=== PATIENT | female | born 1950 | race Caucasian/White ===

== ENCOUNTER 2022-03-21 19:46 | Emergency (ER) | payer MEDICARE, SELFPAY ==
[2022-03-21 20:03] LABS: Adenovirus,PCR Not Detected (NotDetected); Bordetella Pertussis Not Detected (NotDetected); Chlamydophila Pneumoniae, PCR Not Detected (NotDetected); Coronavirus 229E Not Detected (NotDetected); Coronavirus NL63 Not Detected (NotDetected); Coronavirus OC43 Not Detected (NotDetected); Coronovirus HKU1,PCR Not Detected (NotDetected); Human Metapneumovirus Not Detected (NotDetected); Influenza A, PCR Not Detected (NotDetected); Influenza AH1, 2009 Not Detected (NotDetected); Influenza AH1, PCR Not Detected (NotDetected); Influenza AH3,PCR Not Detected (NotDetected); Influenza B, PCR Not Detected (NotDetected); Microscopic, Urine URINE MICROSCOPIC (MICROSCOPIC); Mycoplasma Pneumoniae, PCR Not Detected (NotDetected); Parainfluenza 1, PCR Not Detected (NotDetected); Parainfluenza 2, PCR Not Detected (NotDetected); Parainfluenza 3, PCR Not Detected (NotDetected); Parainfluenza 4, PCR Not Detected (NotDetected); Respiratory Syncytial Virus Not Detected (NotDetected); Rhinovirus/Enterovirus Not Detected (NotDetected)
[2022-03-21 20:04] VITALS: BP 140/44; PULSE 76; RESP 18; TEMP 36.5; O2SAT 96; BMI 32.5
[2022-03-21 20:20] LABS: Appearance,Urine CLEAR (Clear); Bilirubin,Urine Negative (Negative); Blood, Urine Negative (Negative); Color,Urine YELLOW (Yellow); Glucose,Urine (UA) Negative (Negative); Ketones,Urine Negative (Negative); Leukocyte Esterase,Urine Negative (Negative); Nitrate,Urine Negative (Negative); PH,Urine 5.5 (5.0-8.5); Protein,Urine Negative (Negative); Specific Gravity, Urine >= 1.030 (1.005-1.030)
--- NOTE | 2022-03-21 20:21 | XR_ITS ---
PROCEDURE INFORMATION: Exam: XR Chest Exam date and time: 03/21/2022 8:26 PM Age: 71 years old Clinical indication: Condition or disease; Patient HX: Third time having covid. Patient has been vaccinated she states. SOB. ; Additional info: SOA TECHNIQUE: Imaging protocol: Radiologic exam of the chest. Views: 2 views. COMPARISON: No relevant prior studies available. FINDINGS: Lungs: No consolidation. Pleural spaces: No pneumothorax. Heart/Mediastinum: No cardiomegaly. Bones/joints: No acute fracture. IMPRESSION: No acute findings.
--- NOTE | 2022-03-21 20:31 | HMH.EDURI ---
ED Disposition Clinical Impression: COVID-19 Disposition: Home, Self-Care Condition on Discharge: Good Instructions: DI for COVID-19 (Suspected or Confirmed ) Additional Instructions: see pcp for follow up Referrals: Deidre Davenport [Primary Care Provider] - - Critical Care Critical Care Time: No Attestation: On 03/21/22, the high probability of a clinically significant, sudden or life threatening deterioration of the following system(s) required my full and direct attention, intervention and personal management. The time I documented below is in addition to time spent performing reported procedures but includes the following listed in this critical care notation. Medical Decision Making - Medical Records Medical records reviewed: Yes: I reviewed the patient's medical records. - [place] Inquiry Pt receiving controlled substance: No Vital Signs: 03/21/22 20:04 Temperature 97.7 F Temperature Source Oral Pulse Rate [Apical] 76 Respiratory Rate 18 Blood Pressure [Right Arm] 140/44 L Blood Pressure Mean [Right Arm] 76 Blood Pressure Source [Right Arm] Automatic Cuff Blood Pressure Position [Right Arm] Sitting 02 Sat by Pulse Oximetry 96 Oxygen Delivery Method Room Air - Lab Data Lab results reviewed: Yes: I reviewed the patient's lab results. Lab Results 03/21/22 19:53: Urine Color Yellow, Urine Appearance Clear, Urine pH 5.5, Ur Specific [place] >= 1.030, Urine Protein Negative, Urine Glucose (UA) Negative, Urine Ketones Negative, Urine Blood Negative, Urine Nitrate Negative, Urine Bilirubin Negative, Urine Urobilinogen 1.0, Ur Leukocyte Esterase Negative, Urine RBC None, Urine WBC Occasional, Ur Squamous Epith Cells 5-10, Urine Bacteria Trace 03/21/22 19:55: WBC 5.7, RBC 3.68 L, Hgb 10.3 L, Hct 35.3 L, MCV 96.0, MCH 28.0, MCHC 29.2 L, RDW 14.6, Plt Count 416, MPV 8.2, Neut % (Auto) 50.3, Lymph % (Auto) 39.6, [place] % (Auto) 6.0, Eos % (Auto) 3.1, Baso % (Auto) 1.0, Neut # (Auto) 2.9, Lymph # (Auto) 2.3, [place] # (Auto) 0.3, Eos # (Auto) 0.2, Baso # (Auto) 0.1 03/21/22 20:30: ESR 139 H 03/21/22 20:30: Sodium 140, Potassium 4.9, Chloride 105, Carbon Dioxide 29, Anion Gap 10.9, BUN 21 H, Creatinine 0.80, Estimated Creat Clear 70, Estimated GFR 71, Est GFR ( Amer) 86, Glucose 128 H, Calcium 8.9, Magnesium 1.8, Total Bilirubin < 0.1 L, AST 21, ALT 19, Alkaline Phosphatase 70, C-Reactive Protein 8.6 H, Total Protein 7.1, Albumin 3.8, Globulin 3.3 H, Albumin/Globulin Ratio 1.2, Procalcitonin 0.050, TSH 2.47, Thyroxine (T4) 8.1 03/21/22 20:30: NT-Pro-B Natriuret Pep 122 Result diagrams: 03/21/22 19:55 03/21/22 20:30 Orders (Tests/Meds): ED MEDICATIONS Generic Name Dose Route Start Last Admin Trade Name Freq PRN Reason Stop Dose Admin Albuterol Sulfate 2 puff 03/21/22 21:06 03/21/22 21:19 Albuterol-Hfa 90mcg/Puff Inhaler 8gm IH 04/20/22 21:05 2 puff Q6HP PRN Administration Shortness Of Breath Sodium Chloride 1,000 mls @ 999 mls/hr 03/21/22 20:30 03/21/22 20:23 Sod Chlor 0.9% 1000ml Bag IV 03/21/22 21:30 999 mls/hr .Q1H1M JOAO Administration Discontinued Medications Generic Name Dose Route Start Last Admin Trade Name Freq PRN Reason Stop Dose Admin Acetaminophen 650 mg 03/21/22 20:19 03/21/22 20:24 Acetaminophen 325mg Tab PO 03/21/22 20:20 650 mg ONCE ONE Administration Miscellaneous 1 unit 03/21/22 21:06 03/21/22 21:19 Aerochamber/Optihaler MC 03/21/22 21:07 1 unit ONCE ONE Administration ORDERS Category Date Time Status Full Resp Panel w/COVID ([facility]) Routine Lab 03/21/22 19:53 Received - Radiology Data #1 Image(s): Chest Image Reviewed: Yes I have reviewed radiologist's interpretation Preliminary Findings: Normal/NAD Medical Decision Narrative: pt has covid-19 by hx and has stable exam and xray - will continue treatment at this time URI/Sore Throat HPI - General Chief Complaint: Upper Respiratory Infection Stated Com
[2022-03-21 20:35] LABS: Bacteria,Urine Trace /lpf; WBC,Urine Occasional #/hpf (0-3)
[2022-03-21 20:48] LABS: Anion Gap 10.9 mEq/L (5-15); Blood Urea Nitrogen 21 mg/dl (7-17); Carbon Dioxide 29 mmol/L (22.0-30.0); Chloride 105 mmol/L (98-107); Creatinine Clearance Estimated 70 mL/min (50-200); Estimated Glomerular Filt Rate 71 ml/min (>60); Potassium 4.9 mmoL/L (3.5-5.1); Sodium 140 mmol/L (136-145)
[2022-03-21 20:49] LABS: Alanine Aminotransferase 19 U/L (12-78); Albumin Level 3.8 g/dl (3.5-5.0); Albumin/Globulin Ratio 1.2 (1.1-1.8); Alkaline Phosphatase 70 U/L (38-126); Aspartate Amino Transferase 21 U/L (14-36); Bilirubin,Total < 0.1 mg/dl (0.2-1.3); Calcium 8.9 mg/dl (8.4-10.2); GFR (African American) 86 ML/MIN (>60); Globulin 3.3 g/dL (1.3-3.2); Glucose 128 mg/dl (74-100); Magnesium 1.8 mg/dl (1.6-2.3); Total Protein,Serum 7.1 g/dl (6.3-8.2)
[2022-03-21 20:54] LABS: C-Reactive Protein 8.6 mg/L (0-4)
[2022-03-21 21:00] LABS: NT Pro Brain Natriuretic Pep. 122 pg/mL (0-125)
[2022-03-21 21:08] LABS: T4 (Thyroxine) 8.1 ug/dl (5.53-11.0)
[2022-03-21 21:13] LABS: Erythrocyte Sedimentation Rate 139 mm/hr (0-30)
[2022-03-21 21:16] LABS: Basophils # 0.1 K/mm3 (0-0.2); Eosinophils # 0.2 K/mm3 (0.0-0.4); Eosinophils % 3.1 % (0.1-12.0); Hematocrit 35.3 % (37.0-47.0); Hemoglobin 10.3 g/dL (12.2-16.2); Lymphocytes # 2.3 K/mm3 (0.7-4.5); Lymphocytes % 39.6 % (10-50); Mean Corpuscular HGB Conc 29.2 g/dL (31.8-35.4); Mean Platelet Volume 8.2 fl (7.4-10.4); Monocytes # 0.3 K/mm3 (0.1-1.0); Neutrophils # 2.9 K/mm3 (1.8-7.8); Neutrophils % 50.3 % (37.0-80.0); Platelet Count 416 K/mm3 (142-424); Red Blood Count 3.68 M/mm3 (4.20-5.40); Red Cell Distribution Width 14.6 % (11.5-17.5); White Blood Count 5.7 K/mm3 (4.8-10.8)
[2022-03-21 21:22] LABS: Thyroid Stimulating Hormone 2.47 uIU/mL (0.465-4.68)
[2022-03-21 21:54] VITALS: BP 136/85; PULSE 84; RESP 16; TEMP 37.2; O2SAT 96
[2022-03-21 22:39] LABS: Coronavirus 19, PCR Detected (NotDetected)
== END 2022-03-21 22:02 | disposition home or self-care (01) ==
PROVIDERS: Emergency Provider Emergency Medicine; PCP Family Medicine
DX: U07.1 COVID-19 (principal); Z79.82 Long term (current) use of aspirin; Z79.899 Other long term (current) drug therapy; Z79.84 Long term (current) use of oral hypoglycemic drugs; Z88.1 Allergy status to other antibiotic agents; Z88.6 Allergy status to analgesic agent; Z88.8 Allergy status to other drugs, medicaments and biological substances
CPT/HCPCS: 71046; 80053; 81001; 83735; 83880; 84145; 84436; 84443; 85025; 85651; 86140; 87581; 87632; 87798; 94640; 96365; 96375; 99283; 99284; C9803; U0003; U0005

== ENCOUNTER 2022-06-24 01:41 | Emergency (ER) | payer MEDICARE, SELFPAY ==
[2022-06-24] VITALS (8 sets, daily range): BP systolic 133–180; BP diastolic 52–102; PULSE 71–82; RESP 14–18; TEMP 36.6; O2SAT 96–98; BMI 32.5
--- NOTE | 2022-06-24 01:41 | ECG_ITS ---
APPROVED REPORT Exam: Resting ECG HR:74 bpm ECG Measurements Heart Rate 74 AXES NM 172 P 62 QRSd 84 QRS 62 QT 368 T 73 QTc 395 Conclusion SINUS RHYTHM NONSPECIFIC ST & T-WAVE ABNORMALITY BORDERLINE ECG UNCONFIRMED REPORT Electronically signed by : Shawn Michelle MD 06/25/2022 17:41:24
--- NOTE | 2022-06-24 01:44 | XR_ITS ---
PROCEDURE INFORMATION: Exam: XR Chest Exam date and time: 06/24/2022 1:56 AM Age: 71 years old Clinical indication: Pain; Left-sided; Additional info: Chest pain TECHNIQUE: Imaging protocol: Radiologic exam of the chest. Views: 1 view. COMPARISON: CR XR CHEST 2V 03/21/2022 8:26 PM FINDINGS: Lungs: Normal. Pleural spaces: Unremarkable. No pleural effusion. No pneumothorax. Heart/Mediastinum: Normal. Vasculature: Atherosclerotic disease of the thoracic aorta. Bones/joints: Multilevel thoracic spine degenerative disc space narrowing and osteophyte formation. IMPRESSION: No acute cardiopulmonary abnormality.
--- NOTE | 2022-06-24 01:46 | PC.NURSE ---
RAD at for CXR
--- NOTE | 2022-06-24 01:52 | HMH.EDCP ---
Discharge Plan Disposition Patient Disposition: Home, Self-Care Condition: Good Prescriptions Prescriptions: No Action atorvastatin 80 MG tablet 80 mg PO HS diphenoxylate-atropine 2.5 MG tablet 2.5 mg PO DAILY clopidogrel 75 MG tablet 75 mg PO DAILY aspirin 81 MG tablet,delayed release (DR/EC) 81 mg PO DAILY levothyroxine 25 MCG tablet 25 mcg PO DAILY losartan 100 MG tablet 100 mg PO DAILY sertraline 50 MG tablet 75 mg PO DAILY cholecalciferol (vitamin D3) 1,000 UNIT capsule 1,000 unit PO DAILY metformin 500 MG tablet extended release 24hr 500 mg PO BID pregabalin 150 MG capsule 150 mg PO DAILY Referrals Follow up/Referrals: Provider,Referral, MD [Referring] - See instructions Clinical Impressions Clinical Impression: Chest pain Instructions Patient Instructions: DI for Chronic Pain -- Adult, DI for Chest Pain Discharge ED Provider: Ana M Stauffer Chest Pain HPI General Chief Complaint: Chest Pain Stated Complaint: Chest Pain Time Seen by Provider: 06/24/22 01:52 History of Present Illness HPI narrative: 71-year-old female with a past medical history significant for CAD s/p cardiac stents, prior CVA on aspirin and Plavix, hypertension and type 2 diabetes presenting for chief complaint of chest pain. Chest pain at home was 12/10 but has continuously improved to 4 out of 10 currently. At home, patient had associated nausea and states she thought it radiated to her left upper extremity. Pain is located under her left breast. Patient denies fever, diaphoresis, productive cough, hemoptysis, acute limb swelling, lower extremity edema, abdominal pain, vomiting, changes in GI/. Denies falls or traumatic injuries. complaint: chest pain Onset (ago): minute(s) Duration: other (Improved) Activity at onset: during rest Pain location: left chest Severity: moderate Pain radiation: LUE Relieving factors: other (Spontaneous) Exacerbating factors: palpation Associated symptoms: nausea Risk Factors for CAD: Hypertension, Hypercholesterolemia and Diabetes Treatments prior to or on arrival for Cardiac Chest Pain: none Related Data Home Medications Medication Instructions Recorded Confirmed aspirin 81 mg tablet,delayed 81 mg PO DAILY Heart disease 03/21/22 03/21/22 release atorvastatin 80 mg tablet 80 mg PO HS hyperlipidemia 03/21/22 03/21/22 cholecalciferol (vitamin D3) 25 1,000 unit PO DAILY Supplement 03/21/22 03/21/22 mcg (1,000 unit) capsule clopidogrel 75 mg tablet 75 mg PO DAILY Blood thinner 03/21/22 03/21/22 diphenoxylate-atropine 2.5 2.5 mg PO DAILY diarrhea 03/21/22 03/21/22 mg-0.025 mg tablet levothyroxine 25 mcg tablet 25 mcg PO DAILY hypothyroidism 03/21/22 03/21/22 losartan 100 mg tablet 100 mg PO DAILY htn 03/21/22 03/21/22 metformin 500 mg tablet,extended 500 mg PO BID dm 03/21/22 03/21/22 release 24hr pregabalin 150 mg capsule 150 mg PO DAILY nerve pain 03/21/22 03/21/22 sertraline 50 mg tablet 75 mg PO DAILY Depression 03/21/22 03/21/22 Allergies Allergy/AdvReac Type Severity Reaction Status Date / Time amoxicillin [From Augmentin] Allergy Verified 03/21/22 20:11 clavulanic acid Allergy Verified 03/21/22 20:11 [From Augmentin] codeine Allergy Verified 03/21/22 20:11 levofloxacin [From Levaquin] Allergy Verified 03/21/22 20:11 lisinopril Allergy Verified 03/21/22 20:11 [facility] Social History Smoking Status: Never smoker alcohol intake: never current occupational status: other Travel in the last 8 weeks: None ROS Obtained: Yes Systems reviewed as appropriate & no additional complaints except as documented Constitutional Constitutional: Denies fever(s) and Denies malaise Comments: Chronic headaches Eyes Eyes: Denies change in vision Cardiovascular Cardiovascular: Reports chest pain, Reports chest pain at rest, Denies linette
--- NOTE | 2022-06-24 02:01 | PC.NURSE ---
Dr. [place] at BS
[2022-06-24 02:05] LABS: Basophils # 0.2 K/mm3 (0-0.2); Basophils % 1.6 % (0.1-2.0); Eosinophils # 0.4 K/mm3 (0.0-0.4); Eosinophils % 4.3 % (0.1-12.0); Hematocrit 33.8 % (37.0-47.0); Hemoglobin 10.8 g/dL (12.2-16.2); Lymphocytes # 2.9 K/mm3 (0.7-4.5); Lymphocytes % 32.3 % (10-50); Mean Corpuscular HGB Conc 31.9 g/dL (31.8-35.4); Mean Corpuscular Hemoglobin 28.7 pg (27.0-31.2); Mean Platelet Volume 7.8 fl (7.4-10.4); Monocytes # 0.4 K/mm3 (0.1-1.0); Monocytes % 4.6 % (1.7-9.3); Neutrophils # 5.2 K/mm3 (1.8-7.8); Neutrophils % 57.3 % (37.0-80.0); Platelet Count 393 K/mm3 (142-424); Red Blood Count 3.75 M/mm3 (4.20-5.40); Red Cell Distribution Width 15.4 % (11.5-17.5)
[2022-06-24 02:17] LABS: Blood Urea Nitrogen 23 mg/dl (7-17); Calcium 8.8 mg/dl (8.4-10.2); Carbon Dioxide 30 mmol/L (22.0-30.0); Chloride 101 mmol/L (98-107); Creatinine Clearance Estimated 70 mL/min (50-200); Estimated Glomerular Filt Rate 71 ml/min (>60); GFR (African American) 86 ML/MIN (>60); Glucose 114 mg/dl (74-100); Sodium 139 mmol/L (136-145)
[2022-06-24 02:24] LABS: C-Reactive Protein 4.2 mg/L (0-4)
[2022-06-24 02:31] LABS: Troponin I < 0.01 ng/ml (0.00-0.034)
--- NOTE | 2022-06-24 04:17 | PC.NURSE ---
Pt updated on POC and expected wait times. No needs or complaints voiced at this time.
--- NOTE | 2022-06-24 04:23 | PC.NURSE ---
Second trop drawn and sent to lab
[2022-06-24 04:53] LABS: Troponin I < 0.01 ng/ml (0.00-0.034)
== END 2022-06-24 05:37 | disposition home or self-care (01) ==
PROVIDERS: Emergency Provider Emergency Medicine; PCP Family Medicine
DX: R07.9 Chest pain, unspecified (principal); R00.2 Palpitations; I25.10 Atherosclerotic heart disease of native coronary artery without angina pectoris; Z86.73 Personal history of transient ischemic attack (TIA), and cerebral infarction without residual deficits; Z79.01 Long term (current) use of anticoagulants; Z79.82 Long term (current) use of aspirin; Z79.84 Long term (current) use of oral hypoglycemic drugs; I10 Essential (primary) hypertension; E11.9 Type 2 diabetes mellitus without complications; E78.5 Hyperlipidemia, unspecified; Z88.1 Allergy status to other antibiotic agents; Z88.6 Allergy status to analgesic agent; Z88.8 Allergy status to other drugs, medicaments and biological substances
CPT/HCPCS: 71045; 80048; 84484; 85025; 86140; 93005; 99284

== ENCOUNTER → 2023-04-03 16:04 | Outpatient (CLI) | payer MEDICARE, SELFPAY | PROVIDERS: PCP Family Medicine; Visit Provider Specialist | DX: G47.33 Obstructive sleep apnea (adult) (pediatric) (principal); R06.83 Snoring | CPT/HCPCS: G0399 ==

== ENCOUNTER 2023-05-12 16:28 | Emergency (ER) | payer MEDICARE, SELFPAY ==
[2023-05-12 16:29] VITALS: BP 134/41; PULSE 70; RESP 18; TEMP 37; O2SAT 99; BMI 33.5
--- NOTE | 2023-05-12 17:17 | EXP.UTC ---
Discharge Plan Disposition Patient Disposition: Home, Self-Care Condition: Good Prescriptions Prescriptions: New methylprednisolone 4 mg Tablets,Dose Pack 4 mg PO DIRECTED Qty: 21 0RF cefdinir 300 mg capsule 300 mg PO BID Qty: 20 0RF No Action metoprolol succinate 25 mg tablet extended release 24 hr 25 mg PO DAILY All Day Allergy (cetirizine) 10 mg capsule 10 mg PO DAILY ferrous sulfate 324 mg (65 mg iron) tablet,delayed release (DR/EC) 324 mg PO Q OTHER DAY Rx Instructions: MWF ascorbate calcium (vitamin C) 500 mg tablet 500 mg PO .COMPLEX Rx Instructions: 500 mg orally MWF; levothyroxine 125 mcg capsule 125 mcg PO DAILY amlodipine 2.5 mg tablet 2.5 mg PO DAILY (DME) [facility] See Rx Instructions .Route Rx Instructions: As directed meclizine [Dramamine (meclizine)] 25 mg tablet 25 mg PO BID sertraline 100 mg tablet 100 mg PO DAILY atorvastatin 80 MG tablet 80 mg PO HS clopidogrel 75 MG tablet 75 mg PO DAILY aspirin 81 MG tablet,delayed release (DR/EC) 81 mg PO DAILY losartan 100 MG tablet 100 mg PO DAILY cholecalciferol (vitamin D3) 1,000 UNIT capsule 1,000 unit PO DAILY metformin 500 MG tablet extended release 24hr 500 mg PO BID Referrals Follow up/Referrals: Deidre Davenport [Primary Care Provider] - See instructions Activity Restrictions/Add. Instructions Additional Instructions/Restrictions: Drink plenty of fluids. Take tylenol or ibuprofen for pain or fever. Take the medications as directed. Follow up with your regular doctor. GO TO THE ER FOR ANY WORSENING SYMPTOMS Don't start the oral steroids until tomorrow, since you had the shot here today. Clinical Impressions Clinical Impression: Sinusitis, Bronchitis Instructions Patient Instructions: Sinusitis, DI for Sinusitis Discharge ED Provider: Aniceto Velazquez [facility] [place] General Stated complaint: congestion,cough Time Seen by Provider: 05/12/23 17:17 History of Present Illness Provider Complaint: She states that for the past 4 days she has had chest and sinus congestion. She has had a productive cough with yellowish sputum. She has felt bad and had chills, but she denies documented fever. Related Data Home Medications Medication Instructions Recorded Confirmed aspirin 81 mg tablet,delayed 81 mg PO DAILY Heart disease 03/21/22 04/20/23 release atorvastatin 80 mg tablet 80 mg PO HS hyperlipidemia 03/21/22 04/20/23 cholecalciferol (vitamin D3) 25 1,000 unit PO DAILY Supplement 03/21/22 04/20/23 mcg (1,000 unit) capsule clopidogrel 75 mg tablet 75 mg PO DAILY Blood thinner 03/21/22 04/20/23 losartan 100 mg tablet 100 mg PO DAILY htn 03/21/22 04/20/23 metformin 500 mg tablet,extended 500 mg PO BID dm 03/21/22 04/20/23 release 24hr amlodipine 2.5 mg tablet 2.5 mg PO DAILY 03/30/23 04/20/23 ascorbate calcium (vitamin C) 500 500 mg PO .COMPLEX 03/30/23 04/20/23 mg tablet cetirizine 10 mg capsule (All Day 10 mg PO DAILY 03/30/23 04/20/23 Allergy (cetirizine)) ferrous sulfate 324 mg (65 mg 324 mg PO Q OTHER DAY 03/30/23 04/20/23 iron) tablet,delayed release lancets 03/30/23 04/20/23 levothyroxine 125 mcg capsule 125 mcg PO DAILY 03/30/23 04/20/23 meclizine 25 mg tablet (Dramamine 25 mg PO BID 03/30/23 04/20/23 (meclizine)) metoprolol succinate 25 mg 25 mg PO DAILY 03/30/23 04/20/23 tablet,extended release 24 hr sertraline 100 mg tablet 100 mg PO DAILY 03/30/23 04/20/23 Previous Rx's Medication Instructions Recorded cefdinir 300 mg capsule 300 mg PO BID #20 caps 05/12/23 methylprednisolone 4 mg tablets in 4 mg PO DIRECTED #21 tabs 05/12/23 a dose pack Allergies Allergy/AdvReac Type Severity Reaction Status Date / Time amoxicillin [From Augmentin] Allergy Verified 04/20/23 11:21 clavulanic acid Allergy Verified 04/20/23 11:21 [From Augmenti
[2023-05-12 17:58] VITALS: BP 134/41; PULSE 70; RESP 18; TEMP 37; O2SAT 99
== END 2023-05-12 17:59 | disposition home or self-care (01) ==
PROVIDERS: Emergency Provider Nurse Practitioner Family; PCP Family Medicine
DX: J20.9 Acute bronchitis, unspecified (principal); J01.90 Acute sinusitis, unspecified
CPT/HCPCS: 96372; 99204; 99212; G0463